=== PATIENT | female | born 1960 | race Caucasian/White ===

== ENCOUNTER 2016-05-13 08:31 | Outpatient (CLI) | payer OTHER ==
[2015-04-21 10:08] VITALS: BP 117/71
[2016-05-13 09:32] LABS: eGFR (African) > 60; eGFR (Non-African) > 60
== END 2016-05-13 08:32 ==
LOC: LAB 08:31
PROVIDERS: ATTEND Family Medicine
DX: I10 Essential (primary) hypertension (principal); R73.9 Hyperglycemia, unspecified
CPT/HCPCS: 36415; 80053; 80061; 83036

== ENCOUNTER 2017-01-26 10:13 | Outpatient (CLI) | payer OTHER ==
[2015-04-21 10:08] VITALS: BP 117/71
== END 2017-01-26 11:23 ==
LOC: LABRHC 10:13
PROVIDERS: ATTEND Family Medicine
DX: R07.0 Pain in throat (principal)
CPT/HCPCS: 87070

== ENCOUNTER 2017-06-30 07:38 | Outpatient (CLI) | payer OTHER ==
[2015-04-21 10:08] VITALS: BP 117/71
[2017-06-30 08:27] LABS: eGFR (African) > 60; eGFR (Non-African) > 60
== END 2017-06-30 08:22 ==
LOC: LAB 07:38
PROVIDERS: ATTEND Family Medicine
DX: I10 Essential (primary) hypertension (principal); R73.9 Hyperglycemia, unspecified
CPT/HCPCS: 36415; 80053; 80061; 83036

== ENCOUNTER 2017-08-14 08:17 | Day surgery (SDC) | payer OTHER ==
[2015-04-21 10:08] VITALS: BP 117/71
[2017-08-14] MEDS ORDERED: LACTATED RINGERS 1,000 ML IV.SOLN IV ONE (08:18)
[2017-08-14] MEDS ORDERED: SALINE FLUSH 10 ML DISP.SYRIN IVF ONE (08:18)
[2017-08-14] MEDS ORDERED: PROPOFOL 500 MG/50 ML VIAL IV ONE (08:18)
--- NOTE | 2017-08-14 09:27 | GI Report ---
REFERRING PHYSICIAN: Dr. Rufus Lora HOME CARE COORDINATOR: Calixto Pablo MD PROCEDURE MEDICATION: Propofol as per anesthesia. INDICATIONS: This 57-year-old woman is referred for a screening. This is her first colonoscopy. She denies change in bowel habits. Family history shows an uncle who had colon cancer in his 70s. She has had a hysterectomy and C-sections. PROCEDURE PERFORMED: Colonoscopy. PROCEDURE: An Olympus video colonoscope was advanced to the rectum. The sigmoid shows mild diverticular disease of the colon. The colonoscope was slowly advanced all the way to the cecum. The appendiceal orifice and terminal ileum were normal. On slow withdrawal, the cecum, ascending colon, and transverse colon with no obvious intraluminal lesions noted. The descending colon and sigmoid with some redundancy and a few small diverticula. Retroflexion of the rectum was normal. Patient tolerated the procedure well. FINDINGS: Mild diverticular disease of the sigmoid colon. RECOMMENDATIONS: 1. A high-fiber diet. 2. Consider re-looking at her colon in 10 years, unless clinically indicated. cc: Dr. Rufus MORA
== END 2017-08-14 08:20 ==
LOC: OPSURG 08:17
PROVIDERS: ATTEND Internal Medicine Gastroenterology
DX: Z12.11 Encounter for screening for malignant neoplasm of colon (principal); K57.30 Diverticulosis of large intestine without perforation or abscess without bleeding
CPT/HCPCS: J2704; J7120; 45378; S1016